=== PATIENT | female | born 1990 | race Caucasian/White ===

== ENCOUNTER 2021-10-03 21:16 | Emergency (ER) | payer SELFPAY ==
[2021-10-03] MEDS ORDERED: Gabapentin 300 MG CAP ONE (21:54)
[2021-10-03] MEDS ORDERED: predniSONE 20 MG TAB ONE (21:54)
== END 2021-10-03 22:15 | disposition home or self-care (01) ==
LOC: BURERS 21:16
DX: L03.311 Cellulitis of abdominal wall (principal); G62.9 Polyneuropathy, unspecified
CPT/HCPCS: 99283; J7512